=== PATIENT | male | born 1995 | race Caucasian/White ===

== ENCOUNTER 2018-09-10 16:29 | Emergency (ER) | payer OTHER ==
--- NOTE | 2018-09-10 20:11 | ED Physician Documentation ---
PD HPI URI - Stated complaint Stated Complaint: SORE THROAT NAUSEA - Chief complaint Chief Complaint: Heent - History obtained from History obtained from: Patient - History of Present Illness Timing - onset: How many days ago (3) Timing duration: Days (3) Associated symptoms: Chills, Sweats, Sore throat, Dry cough, Other (subjective fever (did not take temperature)) Similar symptoms before: Has not had sx before - Additional information Additional information: c/o 3 days of sore throat, left nare epistaxis, chills, sweats, nausea without vomiting. Review of Systems Constitutional: reports: Chills, Myalgias, Sweats Ears: denies: Ear pain Nose: reports: Epistaxis Throat: reports: Sore throat Respiratory: reports: Cough (mild nonproductive). denies: Dyspnea GI: reports: Nausea. denies: Abdominal Pain, Vomiting PD PAST MEDICAL HISTORY - Past Medical History Cardiovascular: Hypertension - Past Surgical History Past Surgical History: Yes - Present Medications Home Medications: Ambulatory Orders Medication Instructions Recorded Confirmed Hydrocodone/Acetaminophen 1 each PO Q6H PRN #8 tablet 09/10/18 [Hydrocodon-Acetaminophen 5-325] - Allergies Allergies/Adverse Reactions: Allergies Allergy/AdvReac Type Severity Reaction Status Date / Time No Known Drug Allergies Allergy Verified 09/10/18 16:40 - Social History Does the pt smoke?: No Smoking Status: Never smoker Does the pt have substance abuse?: No - Immunizations Immunizations are current?: Yes - POLST Patient has POLST: No PD ED PE NORMAL - Vitals Vital signs reviewed: Yes - General General: Alert and oriented X 3, No acute distress, Well developed/nourished - HEENT HEENT: Moist mucous membranes - Neck Neck: Supple, no meningeal sign - Cardiac Cardiac: RRR, No murmur - Respiratory Respiratory: No respiratory distress, Clear bilaterally PD ED PE EXPANDED - HEENT HEENT: Pharyngeal erythema, Other (no active bleeding from either nare). No: Swollen tonsils, Tonsillar exudate Results - Vitals Vitals: Vital Signs - 24 hr 09/10/18 16:38 Temperature 37.7 C H Heart Rate 109 H Respiratory 20 Rate Blood Pressure 174/97 H O2 Saturation 98 Oxygen O2 Source Room air - Labs Labs: Laboratory Tests 09/10/18 09/10/18 16:45 16:45 Influenza A (Rapid) POSITIVE H Influenza B (Rapid) Negative Group A Strep Rapid Negative PD MEDICAL DECISION MAKING - ED course Complexity details: reviewed results, considered differential, d/w patient Departure - Departure Disposition: 01 Home, Self Care Clinical Impression: Influenza A, Pharyngitis Condition: Good Instructions: ED Flu, ED Pharyngitis Viral Report Pending Follow-Up: [facility] [Provider Group] [facility] [Provider Group] Prescriptions: Hydrocodone/Acetaminophen [Hydrocodon-Acetaminophen 5-325] 1 each PO Q6H PRN #8 tablet PRN Reason: pain
[2018-09-10] MEDS ORDERED: DEXAMETHASONE 10 MG/ML VIAL PO STA (20:24)
[2018-09-10] MEDS ORDERED: HYDROcod/ACETAM 5/325 MG TABLET PO STA (20:25)
[2018-09-10] MEDS ORDERED: CHERRY SYRUP 10 ML UDC PO ONE (20:32)
[2018-09-10 20:36] VITALS: BP 136/87
[2018-09-10] MEDS ORDERED: HYDROcod/ACETAM 5/325 MG TABLET ONE (20:36)
== END 2018-09-10 20:36 | disposition home or self-care (01) ==
LOC: ED 16:29
DX: J10.1 Influenza due to other identified influenza virus with other respiratory manifestations (principal)
CPT/HCPCS: 87070; 87275; 87276; 87430; 99283; A9270

== ENCOUNTER 2020-10-25 07:20 | Emergency (ER) | payer BC, OTHER ==
[2020-10-25] MEDS ORDERED: MORPHINE 10 MG/ML VIAL IVP STA (07:40)
[2020-10-25] MEDS ORDERED: MAGNESIUM CITRATE 296 ML BOTTLE PO STA (07:41)
[2020-10-25] MEDS ORDERED: ONDANSETRON 4 MG/2 ML VIAL IVP STA (07:41)
--- NOTE | 2020-10-25 07:52 | ED Physician Documentation ---
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 Patient states that the pain is across his lower abdomen and radiates into the testicle. Noted that he was urinating blood this morning. He states that his metastases are in remission. He is not currently undergoing any chemotherapy or treatment. Patient states he has been constipated and feels like he is having difficulty defecating. No nausea or vomiting. No history of ureteral stones that he is aware of, though possibly had a ureteral stone several years ago with similar symptoms. Nothing makes it better or worse. Took Motrin without relief. Review of Systems Ten Systems: 10 systems reviewed and negative Constitutional: denies: Fever, Chills Ears: denies: Ear pain Nose: denies: Rhinorrhea / runny nose, Congestion Throat: denies: Sore throat Cardiac: denies: Chest pain / pressure Respiratory: denies: Cough GI: denies: Nausea, Vomiting, Diarrhea : reports: Hematuria. denies: Dysuria, Frequency, Hesitancy Skin: denies: Rash Musculoskeletal: denies: Neck pain, Back pain Neurologic: denies: Headache PD PAST MEDICAL HISTORY - Past Medical History Past Medical History: Yes Cardiovascular: Hypertension - Past Surgical History Past Surgical History: Yes - Present Medications Home Medications: Ambulatory Orders Medication Instructions Recorded Confirmed Cefpodoxime Proxetil [Vantin] 100 mg PO Q12H #28 tablet 10/25/20 Ibuprofen [Motrin] 800 mg PO Q8H PRN #30 tablet 10/25/20 Ondansetron Odt [Zofran] 4 mg TL Q6H PRN #10 tablet 10/25/20 Oxycodone HCl/Acetaminophen 1 - 2 each PO Q6H PRN #14 tablet 10/25/20 [Percocet 5-325 mg Tablet] - Allergies Allergies/Adverse Reactions: Allergies Allergy/AdvReac Type Severity Reaction Status Date / Time No Known Drug Allergies Allergy Verified 10/25/20 07:33 - Social History Does the pt smoke?: No Smoking Status: Never smoker Does the pt have substance abuse?: No - Immunizations Immunizations are current?: Yes - POLST Patient has POLST: No PD ED PE NORMAL - Vitals Vital signs reviewed: Yes - General General: Alert and oriented X 3, No acute distress - HEENT HEENT: Moist mucous membranes - Neck Neck: Supple, no meningeal sign - Cardiac Cardiac: RRR, Strong equal pulses - Respiratory Respiratory: No respiratory distress, Clear bilaterally - Abdomen Abdomen: Soft, Non tender, Non distended - Male Male : Other (normal testicular exam B. normal lie. normal cremasteric reflexes B.) - Back Back: No CVA TTP, No spinal TTP - Derm Derm: Warm and dry - Extremities Extremities: No edema, No calf tenderness / cord - Neuro Neuro: Alert and oriented X 3 - Psych Psych: Normal mood, Normal affect Results - Vitals Vitals: Vital Signs - 24 hr 10/25/20 10/25/20 10/25/20 07:30 08:03 08:49 Temperature 36.4 C L Heart Rate 75 70 82 Respiratory 18 20 20 Rate Blood Pressure 194/116 H 169/119 H 174/117 H O2 Saturation 97 99 100 10/25/20 10/25/20 10/25/20 09:21 09:42 10:21 Temperature Heart Rate 72 78 73 Respiratory 16 16 16 Rate Blood Pressure 162/108 H 152/103 H 152/96 H O2 Saturation 100 100 100 Oxygen O2 Source Room air - Labs Labs: Laboratory Tests 10/25/20 10/25/20 10/25/20 07:55 07:55 09:15 WBC 9.0 RBC 5.34 Hgb 16.8 Hct 48.1 MCV 90.1 MCH 31.5 H MCHC 34.9 RDW 12.7 Plt Count 212 MPV 10.5 Neut # (Auto) 5.0 Lymph # (Auto) 2.8 [place] # (Auto) 1.0 Eos # (Auto) 0.1 Baso # (Auto) 0.1 Absolute Nucleated RBC 0.00 Nucleated RBC % 0.0 Sodium 142 Potassium 3.5 Chloride 103 Carbon Dioxide 27 Anion Gap 12.0 BUN 15 Creatinine 1.0 Estimated GFR (MDRD) 92 Glucose 136 H Calcium 9.9 Total Bilirubin 0.8 AST 16 ALT 14 Alkaline Phosphatase 59 Total Protein 7.6 Albumin 5.0 Globulin 2.6 Albumin/Globulin Ratio 1.9 Lipase 21 L Urine Color RED/BLOODY Urine Clarity BLOODY Urine pH 6.0 Ur Specific [place] >=1.030 H Urine Protein 100 H Urine Glucose (UA) NEGATIVE Urine Ketones NEGATIVE Urine Occult Blood LARGE H Urine Nitrite POSITIVE H Urine Bilirubin NEGATIVE Urine Urobilinogen 1 (NORMAL) Ur Leukocyte Esterase NEGATIVE Urine RBC TNTC H Urine WBC 11-25 H Ur Squamous Epith Cells RARE Squamous Urine Bacteria Few Ur Microscopic Review INDICATED Urine Culture Comments INDICATED - Rads (name of study) CT abd/pelvis Radiology: Prelim report reviewed, EMP read contemporaneously, See rad report PD MEDICAL DECISION MAKING - ED course Complexity details: reviewed results, re-evaluated patient, considered differential, d/w patient ED course: Patient is a 25-year-old male with a 2 mm left obstructing ureteral stone in the distal left ureter. Given Rocephin. Pain well controlled. Given IV fluids. Tolerating p.o. without difficulty. Has a distal colitis as well, unclear etiology. Is not currently having diarrhea. States that he has constipation. We will have him follow-up with his doctor for further evaluation of this. Patient counseled carefully to return if he develops any fever, vomiting or worsening pain. Patient will finish all antibiotics. Patient counseled regarding signs and symptoms for which I believe and urgent re-evaluation would be necessary. Patient with good understanding of and agreement to plan and is comfortable going home at this time This document was made in part using voice recognition software. While efforts are made to proofread this document, sound alike and grammatical errors may occur. IMPRESSION: There is a 2 mm obstructing stone seen within the distal left ureter, with associated left-sided hydroureter and hydronephrosis. The left kidney demonstrates subtle decreased enhancement compared to the right, which is consistent with reduced kidney function. Distal colitis is also seen. Please consider potential infectious and inflammatory causes. No findings of perforation or abscess can be seen. Normal appendix. Departure - Departure Disposition: 01 Home, Self Care Clinical Impression: Ureteral stone, Colitis Hematuria Qualifiers: Hematuria type: gross Qualified Code(s): R31.0 - Gross hematuria Condition: Good Instructions: ED Stone Renal W Colic Follow-Up: your,doctor in 1 week [Other] Prescriptions: Ibuprofen [Motrin] 800 mg PO Q8H PRN #30 tablet PRN Reason: PAIN &/OR FEVER Oxycodone HCl/Acetaminophen [Percocet 5-325 mg Tablet] 1 - 2 each PO Q6H PRN #14 tablet PRN Reason: pain Cefpodoxime Proxetil [Vantin] 100 mg PO Q12H #28 tablet Ondansetron Odt [Zofran] 4 mg TL Q6H PRN #10 tablet PRN Reason: Nausea / Vomiting Comments: Take all antibiotics until gone. Follow-up with your doctor later this week for repeat evaluation. Return if you worsen. Return for uncontrolled pain, vomiting or fevers. Do not drink alcohol or drive while on narcotic pain medicine. Note that many narcotic pain relievers also contain tylenol/acetaminophen. Please ensure that your total dose of acetaminophen from all sources does not exceed 3 grams (3000mg) per day. You may constipated on this medication, take a stool softener such as "Colace" twice a day while you are on it. Also recommend a kohm-fqh-bunprry laxative such as senna or MiraLAX any day that you do not have a bowel movement. If you received narcotic pain medication in the emergency department, do not drive or operate machinery for the next 24 hours. IMPRESSION: There is a 2 mm obstructing stone seen within the distal left ureter, with associated left-sided hydroureter and hydronephrosis. The left kidney demonstrates subtle decreased enhancement compared to the right, which is consistent with reduced kidney function. Distal colitis is also seen. Please consider potential infectious and inflammatory causes. No findings of perforation or abscess can be seen. Normal appendix. Discharge Date/Time: 10/25/20 10:40
--- OUTSIDE RECORDS SUMMARY | 2020-10-25 08:02 | EXTERNAL MEDICAL SUMMARY RPT | Continuity of Care Document ---
:1995 Demographics Phone Unavailable Preferred Language Unknown Marital Status Unknown Mu-Ism Affiliation Unknown Race Unknown Ethnic Group Unknown Author Organization [facility] Address [address] [id number] Phone Social History date description facility [phone]
[2020-10-25] MEDS ORDERED: IOPAMIDOL-300 100 ML VIAL ONE (08:09)
[2020-10-25 08:15] LABS: BASOPHILS # (AUTO) 0.1 10^3/uL (0.0-0.1); BASOPHILS % (AUTO) 0.6 %; EOSINOPHILS # (AUTO) 0.1 10^3/uL (0.0-0.7); EOSINOPHILS % (AUTO) 1.3 %; HCT - HEMATOCRIT 48.1 % (42.0-52.0); HGB - HEMOGLOBIN 16.8 g/dL (14.0-18.0); LYMPHOCYTES # (AUTO) 2.8 10^3/uL (1.5-3.5); LYMPHOCYTES % (AUTO) 31.1 %; MEAN CORPUSCULAR HEMOGLOBIN 31.5 pg (27.0-31.0); MEAN CORPUSCULAR HGB CONC 34.9 g/dL (32.0-36.0); MEAN CORPUSCULAR VOLUME 90.1 fL (80.0-94.0); MEAN PLATELET VOLUME 10.5 fL (7.4-11.4); MONOCYTES % (AUTO) 10.9 %; NEUTROPHILS % (AUTO) 55.9 %; PLT - PLATELET COUNT 212 10^3/uL (130-450); RED BLOOD COUNT 5.34 10^6/uL (4.70-6.10); RED CELL DISTRIBUTION WIDTH 12.7 % (12.0-15.0)
[2020-10-25 08:21] LABS: ALBUMIN/GLOBULIN RATIO 1.9 (1.0-2.2); BILIRUBIN,TOTAL 0.8 mg/dL (0.2-1.0); CALCIUM 9.9 mg/dL (8.5-10.3); POTASSIUM 3.5 mmol/L (3.5-5.0); TOTAL PROTEIN 7.6 g/dL (6.7-8.2)
[2020-10-25] MEDS ORDERED: IOPAMIDOL-300 100 ML VIAL IVP ONE (08:38)
[2020-10-25] MEDS ORDERED: SODIUM CHLORIDE 0.9% 1,000 ML IV STA (08:42)
[2020-10-25] MEDS ORDERED: LIDOCAINE-MPF 2% 5 ML in SODIUM CHLORIDE 0.9% 50 ML IV STA (08:50)
--- NOTE | 2020-10-25 09:01 | CT Report ---
PROCEDURE: Abdomen/Pelvis W INDICATIONS: Abdominal pain, acute, nonlocalized CONTRAST: IV CONTRAST: Isovue 300 ml: 100 PO CONTRAST: *NO PO CONTRAST TECHNIQUE: After the administration of nonionic IV contrast, 5 mm thick sections acquired from the diaphragms to the symphysis. 5 mm thick coronal and sagittal reformats were acquired. For radiation dose reducti on, the following was used: automated exposure control, adjustment of mA and/or kV according to deven ent size. COMPARISON: None. FINDINGS: Image quality: Excellent. ABDOMEN: Lung bases: Mild subpleural bleb formation can be seen involving the right lower lobe posteriorly. He art size is normal. Solid organs: Liver and spleen are normal in size and enhancement. Gallbladder wall does not appear thickened. Biliary system is non dilated. Pancreas enhances normally. No adrenal nodules. There is a 2 mm stone seen within the distal left ureter, as on series 3 image 73. There is mild left -sided hydroureter and hydronephrosis. To the limits of this contrast enhanced study, no nonobstructi ng kidney stones are seen. The kidneys demonstrate normal size. There is subtle decreased enhancement of the left kidney compared to the right. Peritoneum and bowel: There is generalized wall thickening seen of the colon, beginning at the level of the splenic flexure and continuing through the rectum. There are proximal colon demonstrates no s ignificant abnormality. No dilated loops of small bowel are seen. No free fluid or air. No loculated fluid collection is seen to suggest abscess. A normal appendix is seen. Nodes and vessels: No retroperitoneal or mesenteric adenopathy by size criteria. Aorta and inferior vena cava are normal in size. Miscellaneous: A mild fat-containing periumbilical hernia is seen. PELVIS: Genitourinary: Bladder wall thickness is normal. Miscellaneous: No inguinal hernias or adenopathy. Bones: No suspicious bony lesions. No vertebral body compression fractures. IMPRESSION: There is a 2 mm obstructing stone seen within the distal left ureter, with associated le ft-sided hydroureter and hydronephrosis. The left kidney demonstrates subtle decreased enhancement compared to the right, which is consistent with reduced kidney function. Distal colitis is also seen. Please consider potential infectious and inflammatory causes. No finding s of perforation or abscess can be seen. Normal appendix. Reviewed by: Jeremy Aburto MD on 10/25/2020 8:00 AM AKDT Approved by: Jeremy Aburto MD on 10/25/2020 8:00 AM SONDRA Station ID: [id number]
[2020-10-25] MEDS ORDERED: HYDROmorphone 1 MG/ML CARPUJECT IVP STA (09:10)
[2020-10-25 09:26] LABS: GLUCOSE, URINE (UA) NEGATIVE (NEGATIVE); KETONES,URINE (UA) NEGATIVE (NEGATIVE); LEUKOCYTE ESTERASE, URINE NEGATIVE (NEGATIVE); NITRITE,URINE POSITIVE (NEGATIVE); OCCULT BLOOD,URINE LARGE (NEGATIVE); PROTEIN,URINE 100 mg/dL (NEGATIVE); UROBILINOGEN,URINE 1 (NORMAL) E.U./dL (NORMAL)
[2020-10-25 09:31] LABS: CLARITY,URINE BLOODY (CLEAR)
[2020-10-25 09:33] LABS: BILIRUBIN,URINE NEGATIVE (NEGATIVE); ICTOTEST,URINE NEGATIVE
[2020-10-25 09:34] LABS: BACTERIA,URINE Few /HPF (None Seen); RBC,URINE TNTC /HPF (0-5); SQUAMOUS EPITHELIAL CELL,UR RARE Squamous (<= Few)
[2020-10-25] MEDS ORDERED: cefTRIAXone 1 GM VIAL IVP STA (10:07)
[2020-10-25 10:22] VITALS: BP 152/96
== END 2020-10-25 10:40 | disposition home or self-care (01) ==
LOC: ED 07:20
DX: N13.2 Hydronephrosis with renal and ureteral calculous obstruction (principal); R31.0 Gross hematuria; K52.9 Noninfective gastroenteritis and colitis, unspecified; K59.00 Constipation, unspecified; I10 Essential (primary) hypertension; C78.7 Secondary malignant neoplasm of liver and intrahepatic bile duct; C78.00 Secondary malignant neoplasm of unspecified lung; Z85.848 Personal history of malignant neoplasm of other parts of nervous tissue
CPT/HCPCS: 36415; 74177; 80053; 81001; 83690; 85025; 87086; 96365; 96375; 99285; A9270; J1170; J7040; Q9967; 81003

== ENCOUNTER 2020-10-26 10:57 | Emergency (ER) | payer BC ==
--- OUTSIDE RECORDS SUMMARY | 2020-10-26 11:00 | EXTERNAL MEDICAL SUMMARY RPT | Continuity of Care Document ---
:1995 Demographics Phone Unavailable Preferred Language Unknown Marital Status Unknown Zoroastrianism Affiliation Unknown Race Unknown Ethnic Group Unknown Author Organization [facility] Address [address] [place] [address] Phone Social History date description facility [phone]
--- OUTSIDE RECORDS SUMMARY | 2020-10-26 11:08 | EXTERNAL MEDICAL SUMMARY RPT | Continuity of Care Document ---
:1995 Demographics Phone Unavailable Preferred Language Unknown Marital Status Unknown Oriental Orthodox Affiliation Unknown Race Unknown Ethnic Group Unknown Author Organization [facility] Address [address] [place] [address] Phone Social History date description facility [phone]
--- NOTE | 2020-10-26 11:28 | ED Physician Documentation ---
PD HPI ABD PAIN - Stated complaint Stated Complaint: MALE - Chief complaint Chief Complaint: Abd Pain - History obtained from History obtained from: Patient - History of Present Illness Timing - onset: How many days ago (2) Timing - duration: Days (2) Timing - details: Abrupt onset, Still present Improved by: No: Eating, Laying still, Meds (the Rx meds from yesterday did not help when pain returned stronger today.) Worsened by: No: Eating, Moving, Breathing Associated symptoms: Nausea, Constipation, Loss of appetite. No: Fever, Vomiting, Diarrhea, Dysuria Similar symptoms before: Has not had sx before Recently seen: Emergency Dept (yesterday for same, and Dx with left ureteral stone 2 mm.) Review of Systems Constitutional: denies: Fever, Chills Nose: denies: Rhinorrhea / runny nose, Congestion Throat: denies: Sore throat Respiratory: denies: Cough GI: reports: Abdominal Pain (left lower abd) Skin: denies: Rash, Lesions Musculoskeletal: reports: Back pain (left flank) Neurologic: denies: Focal weakness, Numbness PD PAST MEDICAL HISTORY - Past Medical History Cardiovascular: Hypertension Respiratory: None Neuro: None Endocrine/Autoimmune: None GI: None - Past Surgical History Past Surgical History: Yes - Present Medications Home Medications: Ambulatory Orders Medication Instructions Recorded Confirmed Cefpodoxime Proxetil [Vantin] 100 mg PO Q12H #28 tablet 10/25/20 Ibuprofen [Motrin] 800 mg PO Q8H PRN #30 tablet 10/25/20 Ondansetron Odt [Zofran] 4 mg TL Q6H PRN #10 tablet 10/25/20 Oxycodone HCl/Acetaminophen 1 - 2 each PO Q6H PRN #14 tablet 10/25/20 [Percocet 5-325 mg Tablet] - Allergies Allergies/Adverse Reactions: Allergies Allergy/AdvReac Type Severity Reaction Status Date / Time No Known Drug Allergies Allergy Verified 10/26/20 11:05 - Social History Does the pt smoke?: No Smoking Status: Never smoker Does the pt drink ETOH?: No Does the pt have substance abuse?: No - Immunizations Immunizations are current?: Yes - POLST Patient has POLST: No PD ED PE NORMAL - Vitals Vital signs reviewed: Yes - General General: Alert and oriented X 3, Well developed/nourished, Other (appears uncomfortable in pain) - Cardiac Cardiac: RRR, No murmur - Respiratory Respiratory: Clear bilaterally - Abdomen Abdomen: Soft, Non distended, No organomegaly, Other (mild tender left lower abd. No inguinal masses nor hernias. ) - Back Back: Other (left CVA tenderness) - Derm Derm: Normal color, Warm and dry, No rash - Neuro Neuro: Alert and oriented X 3, No motor deficit, Normal speech Results - Vitals Vitals: Vital Signs - 24 hr 10/26/20 10/26/20 10/26/20 11:05 12:46 13:30 Temperature 36.6 C Heart Rate 76 97 88 Respiratory 20 18 16 Rate Blood Pressure 153/100 H 150/99 H 141/88 H O2 Saturation 98 98 100 10/26/20 14:12 Temperature Heart Rate 78 Respiratory 16 Rate Blood Pressure 130/70 O2 Saturation 100 Oxygen O2 Source Room air - Labs Labs: Laboratory Tests 10/26/20 10/26/20 10/26/20 11:33 11:56 11:56 WBC 14.4 H RBC 5.08 Hgb 15.8 Hct 46.1 MCV 90.7 MCH 31.1 H MCHC 34.3 RDW 12.8 Plt Count 193 MPV 10.0 Neut # (Auto) 12.4 H Lymph # (Auto) 1.1 L [place] # (Auto) 0.8 Eos # (Auto) 0.1 Baso # (Auto) 0.1 Absolute Nucleated RBC 0.00 Nucleated RBC % 0.0 Sodium 141 Potassium 4.1 Chloride 103 Carbon Dioxide 25 Anion Gap 13.0 BUN 10 Creatinine 1.1 Estimated GFR (MDRD) 82 L Glucose 109 H Calcium 9.7 Urine Color YELLOW Urine Clarity CLEAR Urine pH 6.0 Ur Specific [place] >=1.030 H Urine Protein NEGATIVE Urine Glucose (UA) NEGATIVE Urine Ketones >=80 H Urine Occult Blood LARGE H Urine Nitrite NEGATIVE Urine Bilirubin NEGATIVE Urine Urobilinogen 0.2 (NORMAL) Ur Leukocyte Esterase NEGATIVE Urine RBC TNTC H Urine WBC 0-3 Ur Squamous Epith Cells NONE SEEN Urine Bacteria Few Ur Microscopic Review INDICATED Urine Culture Comments NOT INDICATED PD MEDICAL DECISION MAKING - ED course Complexity details: reviewed old records (CT from yesterday and ER report. ), reviewed results (UA improved from yesterday so abx dosing seems effective. Culture result still pending. ), re-evaluated patient (improved with meds IV in the ER. ), considered differential, d/w patient Departure - Departure Disposition: 01 Home, Self Care Clinical Impression: Ureteral stone, Flank pain Condition: Stable Record reviewed to determine appropriate education?: Yes Instructions: ED Stone Renal W Colic Comments: Small frequent fluids at home. Continue with some anti-inflammatories such as ibuprofen or naproxen. Add Tylenol or the previously prescribed oxycodone for worse pain. Follow-up with your primary care if not improved well over the next few days. Return as needed. Your urine does show signs of improvement regarding the infection so continue with the antibiotics as well. Discharge Date/Time: 10/26/20 14:00
[2020-10-26 11:42] LABS: BILIRUBIN,URINE NEGATIVE (NEGATIVE); GLUCOSE, URINE (UA) NEGATIVE (NEGATIVE); KETONES,URINE (UA) >=80 mg/dL (NEGATIVE); LEUKOCYTE ESTERASE, URINE NEGATIVE (NEGATIVE); NITRITE,URINE NEGATIVE (NEGATIVE); OCCULT BLOOD,URINE LARGE (NEGATIVE); PROTEIN,URINE NEGATIVE (NEGATIVE); UROBILINOGEN,URINE 0.2 (NORMAL) E.U./dL (NORMAL)
[2020-10-26 11:43] LABS: CLARITY,URINE CLEAR (CLEAR)
[2020-10-26] MEDS ORDERED: KETOROLAC 30 MG/ML VIAL IVP STA (11:49)
[2020-10-26] MEDS ORDERED: LIDOCAINE-MPF 2% 5 ML in SODIUM CHLORIDE 0.9% 50 ML IV STA (11:50)
[2020-10-26] MEDS ORDERED: DOCUSATE SODIUM 100 MG CAPSULE PO STA (11:50)
[2020-10-26] MEDS ORDERED: SODIUM CHLORIDE 0.9% 1,000 ML IV STA (11:50)
[2020-10-26] MEDS ORDERED: SENNA 8.6 MG TABLET PO STA (11:50)
[2020-10-26] MEDS ORDERED: HYDROmorphone 1 MG/ML CARPUJECT IVP STA ×2 (11:50→13:21)
[2020-10-26] MEDS ORDERED: ONDANSETRON 4 MG/2 ML VIAL IVP STA (11:51)
[2020-10-26 12:00] LABS: WBC,URINE 0-3 /HPF (0-3)
[2020-10-26 12:01] LABS: RBC,URINE TNTC /HPF (0-5)
[2020-10-26 12:02] LABS: BACTERIA,URINE Few /HPF (None Seen); SQUAMOUS EPITHELIAL CELL,UR NONE SEEN (<= Few)
[2020-10-26 12:05] LABS: BASOPHILS # (AUTO) 0.1 10^3/uL (0.0-0.1); BASOPHILS % (AUTO) 0.3 %; EOSINOPHILS # (AUTO) 0.1 10^3/uL (0.0-0.7); EOSINOPHILS % (AUTO) 0.3 %; HCT - HEMATOCRIT 46.1 % (42.0-52.0); HGB - HEMOGLOBIN 15.8 g/dL (14.0-18.0); LYMPHOCYTES # (AUTO) 1.1 10^3/uL (1.5-3.5); LYMPHOCYTES % (AUTO) 7.4 %; MEAN CORPUSCULAR HEMOGLOBIN 31.1 pg (27.0-31.0); MEAN CORPUSCULAR HGB CONC 34.3 g/dL (32.0-36.0); MEAN CORPUSCULAR VOLUME 90.7 fL (80.0-94.0); MONOCYTES # (AUTO) 0.8 10^3/uL (0.0-1.0); MONOCYTES % (AUTO) 5.5 %; NEUTROPHILS # (AUTO) 12.4 10^3/uL (1.5-6.6); NEUTROPHILS % (AUTO) 86.2 %; PLT - PLATELET COUNT 193 10^3/uL (130-450); RED BLOOD COUNT 5.08 10^6/uL (4.70-6.10); RED CELL DISTRIBUTION WIDTH 12.8 % (12.0-15.0); WHITE BLOOD COUNT 14.4 x10^3/uL (4.8-10.8)
[2020-10-26 12:13] LABS: CALCIUM 9.7 mg/dL (8.5-10.3); CREATININE 1.1 mg/dL (0.6-1.2); POTASSIUM 4.1 mmol/L (3.5-5.0)
[2020-10-26] MEDS ORDERED: BISACODYL 10 MG SUPP PR STA (13:21)
[2020-10-26 14:13] VITALS: BP 130/70
== END 2020-10-26 14:00 | disposition home or self-care (01) ==
LOC: ED 10:57
DX: N13.2 Hydronephrosis with renal and ureteral calculous obstruction (principal); R10.32 Left lower quadrant pain; K59.00 Constipation, unspecified
CPT/HCPCS: 36415; 80048; 81001; 85025; 96365; 96375; 96376; 99284; 99285; A9270; J1170; J7040; 81003; 87086

== ENCOUNTER 2022-03-19 18:00 | Outpatient (CLI) | payer BC | END 2022-03-19 18:01 | disposition critical access hospital (66) | LOC: EMS 18:00 | DX: R07.89 Other chest pain (principal) | CPT/HCPCS: A0425; A0427 ==

== ENCOUNTER 2022-03-19 18:21 | Emergency (ER) | payer BC ==
[2022-03-19] MEDS ORDERED: SODIUM CHLORIDE 0.9% 1,000 ML IV STA (18:42)
--- NOTE | 2022-03-19 18:43 | ED Physician Documentation ---
History of Present Illness - Stated complaint Stated Complaint: CP - Chief complaint Chief Complaint: Cardiac - Additonal information Additional information: 26-year-old male was brought to the emergency department for evaluation of substernal chest pain chest pressure with radiation down the left arm. He is visiting [facility] from [place]. He reports ingesting edibles about 3 PM and smoking pot shortly afterward. Reports having a similar episode a number of months ago and was seen at [facility]. Denies any pertinent past medical history previous to this takes no medications. He does appear under the influence of cannabis at this time. Review of Systems Constitutional: denies: Fever, Chills Throat: reports: Reviewed and negative Cardiac: reports: Chest pain / pressure Respiratory: reports: Reviewed and negative GI: reports: Reviewed and negative PD PAST MEDICAL HISTORY - Past Medical History Cardiovascular: Hypertension Respiratory: None Neuro: None Endocrine/Autoimmune: None GI: None - Past Surgical History Past Surgical History: Yes - Present Medications Home Medications: Ambulatory Orders Medication Instructions Recorded Confirmed Cefpodoxime Proxetil [Vantin] 100 mg PO Q12H #28 tablet 10/25/20 Ibuprofen [Motrin] 800 mg PO Q8H PRN #30 tablet 10/25/20 Ondansetron Odt [Zofran] 4 mg TL Q6H PRN #10 tablet 10/25/20 Oxycodone HCl/Acetaminophen 1 - 2 each PO Q6H PRN #14 tablet 10/25/20 [Percocet 5-325 mg Tablet] - Allergies Allergies/Adverse Reactions: Allergies Allergy/AdvReac Type Severity Reaction Status Date / Time No Known Drug Allergies Allergy Verified 10/26/20 11:05 - Social History Does the pt smoke?: No Smoking Status: Never smoker Does the pt drink ETOH?: No Does the pt have substance abuse?: No - Immunizations Immunizations are current?: Yes - POLST Patient has POLST: No PD ED PE NORMAL - General General: Alert and oriented X 3, No acute distress, Well developed/nourished - HEENT HEENT: Atraumatic - Neck Neck: Supple, no meningeal sign, No adenopathy - Cardiac Cardiac: RRR, No murmur - Respiratory Respiratory: No respiratory distress - Abdomen Abdomen: Normal bowel sounds, Non tender - Back Back: No CVA TTP, No spinal TTP - Derm Derm: Normal color, Warm and dry - Extremities Extremities: No deformity, No tenderness to palpate, Normal ROM s pain - Neuro Neuro: Alert and oriented X 3, consulting sme 2-12 intact Eye Opening: Spontaneous Motor: Obeys Commands Verbal: Oriented GCS Score: 15 Results - Vitals Vitals: Vital Signs - 24 hr 03/19/22 03/19/22 03/19/22 18:26 18:59 19:29 Temperature 36.8 C Heart Rate 88 90 97 Respiratory 18 15 15 Rate Blood Pressure 144/87 H 135/85 H 136/89 H O2 Saturation 98 100 100 Oxygen O2 Source Room air - EKG (time done) 1823 Rate: Rate (enter#) (89) Rhythm: NSR [place]: Normal Intervals: Normal [place] QRS: Normal Ischemia: Normal ST segments Compare to prior EKG: Old EKG unavailable Computer interpretation: Agree with computer - Labs Labs: Laboratory Tests 03/19/22 03/19/22 03/19/22 18:51 18:51 18:51 WBC 11.9 H RBC 4.83 Hgb 14.7 Hct 43.1 MCV 89.2 MCH 30.4 MCHC 34.1 RDW 12.9 Plt Count 187 MPV 9.8 Neut # (Auto) 9.0 H Lymph # (Auto) 1.8 Elbert # (Auto) 0.9 Eos # (Auto) 0.1 Baso # (Auto) 0.1 Absolute Nucleated RBC 0.00 Nucleated RBC % 0.0 Sodium 139 Potassium 3.6 Chloride 106 Carbon Dioxide 27 Anion Gap 6.0 BUN 12 Creatinine 0.9 Estimated GFR (MDRD) 103 Glucose 131 H Calcium 8.6 Total Bilirubin 0.7 AST 13 ALT 11 Alkaline Phosphatase 48 Troponin I High Sens < 2.3 L Total Protein 6.6 L Albumin 4.2 Globulin 2.4 Albumin/Globulin Ratio 1.8 Lipase 25 - Rads (name of study) cxr Radiology: EMP read indepedently (No acute cardiopulmonary pathology. No pneumothorax.) PD MEDICAL DECISION MAKING - ED course Complexity details: reviewed results, re-evaluated patient, considered differential, d/w patient ED course: 26-year-old male presents emergency department for evaluation of left-sided chest pain with radiation to the left arm as well as some numbness and tingling. On presentation to the emergency department he did appear acutely intoxicated and smelled heavily of cannabis. He had endorsed smoking quite a bit today as well as consuming some edibles. He had a similar presentation to [facility] a few months ago. Here in the emergency department his screening EKG, chest x-ray as well as labs were all without acute worrisome findings. After about 90 minutes here in the emergency department he has metabolized and is now feeling markedly better and more clear headed. He is discharged home in stable condition. I advised him to reduce the amount of cannabis for which he consumes during the weekends. Departure - Departure Disposition: Home, Self Care Clinical Impression: Chest pain Qualifiers: Chest pain type: unspecified Qualified Code(s): R07.9 - Chest pain, unspecified Condition: Stable Record reviewed to determine appropriate education?: Yes Instructions: ED Chest Pain NonCardiac Comments: Fran you are seen today in the emergency department for left-sided chest pain with radiation to the left arm as well as some numbness. Here in the emergency department your chest x-ray, labs and EKG are all essentially normal. There is nothing to suggest a heart attack pneumonia or pneumothorax. I suspect that the cause of your symptoms may have been an overindulgence of cannabis. You had a similar presentation to [facility] few months ago. Moving forward I would encourage you to reduce the amount of cannabis you consume on the weekends. At any point you develop fainting episodes, have severe difficulty breathing or return of chest pain that worsens with exertion then please return immediately to the ER for a second evaluation.
[2022-03-19 18:57] LABS: BASOPHILS # (AUTO) 0.1 10^3/uL (0.0-0.1); BASOPHILS % (AUTO) 0.5 %; EOSINOPHILS # (AUTO) 0.1 10^3/uL (0.0-0.7); EOSINOPHILS % (AUTO) 0.7 %; HCT - HEMATOCRIT 43.1 % (42.0-52.0); HGB - HEMOGLOBIN 14.7 g/dL (14.0-18.0); LYMPHOCYTES # (AUTO) 1.8 10^3/uL (1.5-3.5); LYMPHOCYTES % (AUTO) 15.3 %; MEAN CORPUSCULAR HEMOGLOBIN 30.4 pg (27.0-31.0); MEAN CORPUSCULAR HGB CONC 34.1 g/dL (32.0-36.0); MEAN CORPUSCULAR VOLUME 89.2 fL (80.0-94.0); MEAN PLATELET VOLUME 9.8 fL (7.4-11.4); MONOCYTES # (AUTO) 0.9 10^3/uL (0.0-1.0); MONOCYTES % (AUTO) 7.7 %; NEUTROPHILS % (AUTO) 75.5 %; PLT - PLATELET COUNT 187 10^3/uL (130-450); RED BLOOD COUNT 4.83 10^6/uL (4.70-6.10); RED CELL DISTRIBUTION WIDTH 12.9 % (12.0-15.0); WHITE BLOOD COUNT 11.9 x10^3/uL (4.8-10.8)
[2022-03-19 19:12] LABS: ALBUMIN 4.2 g/dL (3.2-5.5); ALBUMIN/GLOBULIN RATIO 1.8 (1.0-2.2); BILIRUBIN,TOTAL 0.7 mg/dL (0.2-1.0); CALCIUM 8.6 mg/dL (8.5-10.3); CREATININE 0.9 mg/dL (0.6-1.2); POTASSIUM 3.6 mmol/L (3.5-5.0); TOTAL PROTEIN 6.6 g/dL (6.7-8.2)
[2022-03-19 19:35] VITALS: BP 136/89
--- NOTE | 2022-03-19 20:16 | XRAY Report ---
PROCEDURE: Chest 1 View X-Ray INDICATIONS: Chest Pain TECHNIQUE: One view of the chest was acquired. COMPARISON: None FINDINGS: Surgical changes and devices: None. Lungs and pleura: No pleural effusions or pneumothorax. Lungs are clear. Mediastinum: Mediastinal contours appear normal. Heart size is normal. Bones and chest wall: No suspicious bony lesions. Overlying soft tissues appear unremarkable. IMPRESSION: Chest without acute cardiopulmonary abnormalities or focal airspace disease. Reviewed by: Yo Lagunas MD on 03/19/2022 8:14 PM PDT Approved by: Yo Lagunas MD on 03/19/2022 8:14 PM PDT Station ID: [id number]
== END 2022-03-19 20:02 | disposition home or self-care (01) ==
LOC: EDUNIT# → ED 18:21
DX: R07.9 Chest pain, unspecified (principal); I10 Essential (primary) hypertension
CPT/HCPCS: 36415; 80053; 83690; 84484; 85025; 93005; 96360; 99284